=== PATIENT | male | born 1945 | race Caucasian/White ===

== ENCOUNTER 2020-08-02 07:17 | Emergency (ER) | payer MEDICARE, OTHER ==
[~2020-08-02] VITALS: Ht 182.9 cm; Wt 118.0 kg
[2020-08-02 07:18] VITALS: BP 164/98
--- NOTE | 2020-08-02 08:14 | RAD ---
Exam performed: Right hand 3 views. Indication: Right hand injury. Date of Service: 08/02/2020 Comparison: None available Discussion: PA, oblique lateral radiographs of the hand reveal the osseous structures to be intact and well align ed. There is moderate to severe narrowing of the first carpometacarpal joint with periarticular sclerosis and osteophytic spurring. Also noted is moderate narrowing of several distal interphalangeal joints with osteophytic spurring. There is diffuse soft tissue swelling in the head. No bony erosions or per iosteal reaction is seen. There is no foreign body. Impression: 1. No acute bony abnormality seen. 2. Degenerative changes as outlined above. 3. Soft tissue swelling. Electronically signed by: Madison Chaudhari MD (08/02/2020 8:12 AM) [id number]
[2020-08-02] MEDS ORDERED: HYDR-2759 PO (08:28)
--- NOTE | 2020-08-02 08:28 | PHYS DOC ---
Past History Past Medical History: Arthritis Past Surgical History: Hip Replacement, Knee Replacement, Other Additional Past Surgical Histo: shoulder Alcohol Use: None General Adult EDM: Chief Complaint: HAND PROBLEM HPI: HPI: Patient is a 75-year-old male coming in for right hand pain and swelling that started 2 days ago. Patient was on his boat and accidentally smacked his hand on the motor. Is coming in today because he had difficulty sleeping last night due to pain. Patient denies any paresthesias or numbness in his fingers. Is right-handed. States he otherwise has been well. Review of Systems: Review of Systems: All other systems within normal limits except for as noted in the HPI Allergies: Allergies: Allergies Coded Allergies Type Severity Reaction Last Updated Verified No Known Drug Allergies 08/02/20 No Physical Exam: PE: Constitutional: Well developed, well nourished, no acute distress, non-toxic appearance. [] HENT: Normocephalic, atraumatic, bilateral external ears normal, nose normal. [] Eyes: PERRLA, conjunctiva normal, no discharge. [] Neck: No rigidity, supple, no stridor. [] Cardiovascular: Regular rate and rhythm, brisk cap refill [] Lungs & Thorax: Non labored symmetric respirations, no tachypnea or respiratory distress [] Abdomen: Soft, nondistended. Skin: Warm, dry, no erythema, no rash. [] Back: Unremarkable Extremities: No deformities, range of motion grossly intact, no lower extremity edema. Right hand swelling at base of thumb on palmar and dorsal side. Neurovascularly intact distal. Positive for snuffbox tenderness [] Neurologic: Alert and oriented X 3, no focal deficits noted. [] Psychologic: Affect normal, judgement normal, mood normal. [] Current Patient Data: Vital Signs: Vital Signs Date Time Temp Pulse Resp B/P (MAP) Pulse Ox O2 Delivery O2 Flow Rate FiO2 08/02/20 07:18 97.5 70 16 164/98 (120) 98 Room Air EKG: EKG: [] Radiology/Procedures: Radiology/Procedures: PROCEDURE: HAND RIGHT 3V Exam performed: Right hand 3 views. Indication: Right hand injury. Date of Service: 08/02/2020 Comparison: None available Discussion: PA, oblique lateral radiographs of the hand reveal the osseous structures to be intact and well aligned. There is moderate to severe narrowing of the first carpometacarpal joint with periarticular sclerosis and osteophytic spurring. Also noted is moderate narrowing of several distal interphalangeal joints with osteophytic spurring. There is diffuse soft tissue swelling in the head. No bony erosions or periosteal reaction is seen. There is no foreign body. Impression: 1. No acute bony abnormality seen. 2. Degenerative changes as outlined above. 3. Soft tissue swelling. [] Heart Score: Risk Factors: Risk Factors: DM, Current or recent (<one month) smoker, HTN, HLP, family history of CAD, obesity. Risk Scores: Score 0 - 3: 2.5% MACE over next 6 weeks - Discharge Home Score 4 - 6: 20.3% MACE over next 6 weeks - Admit for Clinical Observation Score 7 - 10: 72.7% MACE over next 6 weeks - Early Invasive Strategies Course & Med Decision Making: Course & Med Decision Making No radiologic evidence of fracture. Patient does have exam positive for snuffbox tenderness. Discussed possibility of scaphoid fracture and placed in splint. Instructed to follow-up with his primary care physician in 7 to 10 days. [] Dragon Disclaimer: Dragon Disclaimer: This electronic medical record was generated, in whole or in part, using a voice recognition dictation system. Departure Departure: Impression: Primary Impression: Tenderness of anatomical snuffbox Additional Impression: Injury of right hand Disposition: 01 DC HOME SELF CARE/HOMELESS Condition: STABLE Patient Instructions: Cast or Splint Care Additional Instructions: Follow-up with Dr. Levin in 7 to 10 days for repeat imaging to evaluate for possible scaphoid fracture Scripts Hydrocodone/Acetaminophen (Hydrocodone-Acetamin 5-325 mg) 1 Each Tablet 1 EACH PO PRN Q4-6HRS PRN for PAIN for 3 Days, #10 TAB Prov: RIDDHI CAMPOS MD 08/02/20 RIDDHI CAMPOS MD Aug 02, 2020 08:28
== END 2020-08-02 08:46 | disposition home or self-care (01) ==
LOC: ER 07:17
DX: S69.91XA Unspecified injury of right wrist, hand and finger(s), initial encounter (principal); M19.90 Unspecified osteoarthritis, unspecified site; W22.8XXA Striking against or struck by other objects, initial encounter; Y93.89 Activity, other specified; Y92.89 Other specified places as the place of occurrence of the external cause; Y99.8 Other external cause status
CPT/HCPCS: 29125; 73130; 99283